=== PATIENT | male | born 1950 | race Caucasian/White ===

== ENCOUNTER → 2017-01-01 | Outpatient (CLI) | payer OTHER ==
--- NOTE | 2017-01-02 08:43 | DI ---
Indication: [email or web address]: DIAGNOSTIC TESTING PROCEDURE: FOOT RIGHT 2 VIEWS: Encounter: Initial Comparison: None Findings: There is no acute fracture, dislocation or malalignment identified. Mild degenerative change in the first metatarsophalangeal joint. Mild degenerative change in the tibiotalar joint with small osteophytes. Inferior calcaneal spur. Arterial vascular calcifications. Impression: No acute osseous abnormality. .
--- NOTE | 2017-01-02 08:44 | DI ---
Indication: [email or web address]: DIAGNOSTIC TESTING PROCEDURE: FOOT LEFT 2 VIEWS: Encounter: Initial Comparison: None Findings: There is no acute fracture, dislocation or malalignment identified. Mild degenerative change in the first metatarsophalangeal joint. Degenerative change in the talonavicular joint. Inferior calcaneal spurring. Arterial vascular calcifications. Impression: No acute osseous abnormality. .
== END ==
LOC: IMA 16:31
DX: Z02.9 Encounter for administrative examinations, unspecified (principal)